=== PATIENT | female | born 1990 | race Caucasian/White ===

== ENCOUNTER 2016-05-12 09:31 | Outpatient (CLI) | payer OTHER | END 2016-05-12 09:32 | disposition home or self-care (01) | LOC: NC 09:31 | PROVIDERS: ATTEND Advanced Practice Midwife | DX: O99.211 Obesity complicating pregnancy, first trimester (principal); Z71.3 Dietary counseling and surveillance; Z68.41 Body mass index [BMI] 40.0-44.9, adult; E66.9 Obesity, unspecified ==

== ENCOUNTER 2016-05-26 11:47 | Outpatient (CLI) | payer OTHER | END 2016-05-26 11:48 | disposition home or self-care (01) | LOC: NC 11:47 | PROVIDERS: ATTEND Advanced Practice Midwife | DX: O99.211 Obesity complicating pregnancy, first trimester (principal); Z71.3 Dietary counseling and surveillance; Z68.41 Body mass index [BMI] 40.0-44.9, adult; E66.9 Obesity, unspecified ==